=== PATIENT | male | born 1950 | race Caucasian/White ===

== ENCOUNTER 2017-11-29 08:55 | Day surgery (SDC) | payer MEDICARE, OTHER ==
[~2017-11-29 08:55] MED LIST: BUPIVACAINE 0.5% PF 30 ML VIAL ONE; LACTATED RINGERS 1,000 ML IV ONE; LIDOCAINE 1%-EPI 1:100000 30 ML MDV ONE; LIDOCAINE JELLY 2% 5 ML TUBE TOP ONE
[2017-11-29] MEDS ORDERED: PROPOFOL 1000 MG/100 ML IV ONE (13:00)
[2017-11-29] MEDS ORDERED: MIDAZOLAM 2 MG/2 ML VIAL IVP ONE (13:00)
[2017-11-29] MEDS ORDERED: BUPIVACAINE 0.5% PF 30 ML VIAL ONE (13:15)
[2017-11-29] MEDS ORDERED: LIDOCAINE 1%-EPI 1:100000 30 ML MDV ONE (13:15)
[2017-11-29] MEDS ORDERED: BUPIVACAINE 0.5% PF 30 ML VIAL SUBQ ONE (13:20)
[2017-11-29] MEDS ORDERED: LIDOCAINE 1%-EPI 1:100000 30 ML MDV SUBQ ONE (13:20)
--- NOTE | 2017-11-29 13:54 | OPERATIVE REPORT ---
Operative Report - General Procedure Date: 11/29/17 Planned Procedure: Incision and drainage perirectal abscess and removal of anal papula - Procedure Note Primary Surgeon: Tony - Other Other Information/Narrative: After obtaining informed consent the patient was brought into the operating room position on the operating table in the left lateral decubitus position. He was administered sedation. He was prepped and draped in the usual sterile fashion and a timeout taken according to protocol. Local anesthetic was infiltrated. The palpable abscess cavity was located in the 10 o'clock position. An elliptical incision was created over this area and deepened down to the subcutaneous tissue. This was excised with Bovie cautery. The surgeon' s finger was then inserted into the cavity and any loculations were broken up. There is no direct connection to the anal canal after extensively probing of the area. Anoscopy was performed and again no intra-anal opening was observed. A small anal papula located in the 9 o'clock position was removed with electrocautery and passed off as a specimen. The abscess cavity was then packed with quarter inch iodoform packing. Dressing was applied and the patient was taken to the recovery room in stable condition. Estimated blood loss: Minimal Specimens: Anal papula Complications: None
[2017-11-29 14:00] VITALS: BP 136/83
== END 2017-11-29 08:56 | disposition home or self-care (01) ==
LOC: SDS 08:55
PROVIDERS: ATTEND Surgery
PROC: 0D9P0ZZ Drainage of Rectum, Open Approach (ICD-10-PCS; principal; 2017-11-29 10:00)
DX: K61.1 Rectal abscess (principal); Z87.891 Personal history of nicotine dependence
CPT/HCPCS: 46040; J7120

== ENCOUNTER 2020-04-27 12:54 | Outpatient (CLI) | payer MEDICARE, OTHER ==
--- NOTE | 2020-04-27 13:35 | XRAY Report ---
PROCEDURE: Chest 2 View X-Ray INDICATIONS: HYPERTENSION TECHNIQUE: 2 view(s) of the chest. COMPARISON: None. FINDINGS: Surgical changes and devices: None. Lungs and pleura: No pleural effusions or pneumothorax. Lungs are clear. Mediastinum: Mediastinal contours are normal. Heart size is normal. Bones and chest wall: No suspicious bony abnormalities. Soft tissues appear unremarkable. IMPRESSION: No acute cardiopulmonary pathology. Reviewed by: Shai Hedrick MD on 04/27/2020 1:34 PM [facility] Approved by: Shai Hedrick MD on 04/27/2020 1:34 PM [facility] Station ID: [id number]
--- OUTSIDE RECORDS SUMMARY | 2020-05-04 01:49 | EXTERNAL MEDICAL SUMMARY RPT | Continuity of Care Document ---
:1950 Demographics Phone Unavailable Preferred Language Unknown Marital Status Unknown Baptism Affiliation Unknown Race Unknown Ethnic Group Unknown Author Organization [place] Address [address] [place] [address] Phone Care Team Providers Name Role Phone MD Unavailable Unavailable CHUCKA Unavailable Unavailable SONE Unavailable Unavailable Problems date description facility 2017-11-29 08:55 [facility] 2017-11-29 08:55 PERSONAL HISTORY OF NICOTINE [facility] DEPENDENCE 2020-04-27 00:00 [facility] 2020-04-27 00:00 ESSENTIAL (PRIMARY) [facility] HYPERTENSION 2020-04-27 00:00:00 TSH WITH REFLEX TO FT4 [facility] 2020-04-27 00:00:00 Unspecified essential [facility] hypertension 2020-04-27 00:00:00 CHEST 2 VIEW [facility] 2020-04-27 00:00:00 COMPREHENSIVE METABOLIC PANEL [facility] 2020-04-27 00:00:00 LIPIDS SCREEN [...] S urgical Care 2020-04-27 12:54 ESSENTIAL (PRIMARY) [facility] HYPERTENSION 2020-04-27 13:19 ESSENTIAL (PRIMARY) [facility] HYPERTENSION 2020-04-27 13:[address] [facility] Allergies date description facility TRIAMCINOLONE ACETONIDE [facility] HYDROMORPHONE [facility] NO ALLERGY INFORMATION AVAILABLE [facility] No Known Drug Allergies [facility] CODEINE [facility] METAXALONE [facility] AMIODARONE [facility] NITROGLYCERIN [facility] Medications date description facility 2020-04-27 00:00:[address] [facility] 2020-04-27 00:00:[address] [facility] 2020-04-27 00:00:00 [facility] 2020-04-27 00:00:00 [facility] 2020-04-28 00:00:[address] [facility] 2020-04-28 00:00:[address] [facility] 2020-04-28 00:00:[address] [facility] 2020-04-28 00:00:[address] [facility] Procedures date description facility 2020-04-27 00:00:00 TSH WITH REFLEX TO FT4 [facility] date description facility 2020-04-27 00:00:00 COMPREHENSIVE METABOLIC PANEL [facility] date description facility 2020-04-27 00:00:[address] [facility] date description facility 2020-04-27 00:00:[address] [facility] date description facility 2020-04-27 00:00:00 TROPONIN I HIGH SENSITIVITY [facility] date description facility 2020-04-27 00:00:00 CBC W/Diff/Plt [facility] date description facility 2020-04-27 00:00:00 [facility] date description facility 2020-04-27 [facility]:00[facility] Results Social History date description facility [phone]
== END 2020-04-27 23:59 | disposition home or self-care (01) ==
LOC: DI.N 12:54
PROVIDERS: ATTEND Family Medicine
DX: I10 Essential (primary) hypertension (principal); R07.89 Other chest pain
CPT/HCPCS: 36415; 80053; 80061; 82553; 83721; 84443; 84484; 85025; 85379

== ENCOUNTER 2020-04-27 13:19 | Outpatient (CLI) | payer MEDICARE, OTHER ==
[2020-04-27 18:55] LABS: CREATINE KINASE MB 1.9 ng/mL (0.6-6.3)
[2020-04-27 18:57] LABS: BASOPHILS # (AUTO) 0.1 10^3/uL (0.0-0.1); BASOPHILS % (AUTO) 0.9 %; EOSINOPHILS # (AUTO) 0.3 10^3/uL (0.0-0.7); EOSINOPHILS % (AUTO) 4.5 %; LYMPHOCYTES # (AUTO) 1.2 10^3/uL (1.5-3.5); MEAN CORPUSCULAR HEMOGLOBIN 31.3 pg (27.0-31.0); MEAN CORPUSCULAR HGB CONC 32.3 g/dL (32.0-36.0); MEAN CORPUSCULAR VOLUME 96.7 fL (80.0-94.0); MEAN PLATELET VOLUME 10.2 fL (7.4-11.4); MONOCYTES # (AUTO) 0.6 10^3/uL (0.0-1.0); MONOCYTES % (AUTO) 11.4 %; NEUTROPHILS # (AUTO) 3.4 10^3/uL (1.5-6.6); NEUTROPHILS % (AUTO) 61.7 %; PLT - PLATELET COUNT 263 10^3/uL (130-450); RED BLOOD COUNT 5.12 10^6/uL (4.70-6.10); RED CELL DISTRIBUTION WIDTH 13.8 % (12.0-15.0); WHITE BLOOD COUNT 5.5 x10^3/uL (4.8-10.8)
[2020-04-27 19:03] LABS: ALBUMIN 4.3 g/dL (3.2-5.5); ALBUMIN/GLOBULIN RATIO 1.3 (1.0-2.2); ALKALINE PHOSPHATASE 51 IU/L (42-121); ALT ALANINE AMINOTRANSFERASE 29 IU/L (10-60); AST ASPARTATE AMINOTRANSFERASE 25 IU/L (10-42); BILIRUBIN,TOTAL 0.7 mg/dL (0.2-1.0); BUN - BLOOD UREA NITROGEN 11 mg/dL (6-20); CALCIUM 9.5 mg/dL (8.5-10.3); CARBON DIOXIDE - CO2 28 mmol/L (21-32); CHLORIDE 108 mmol/L (101-111); CHOL/HDL RATIO 3.8 (<5.0); CHOLESTEROL 214 mg/dL; CREATININE 0.9 mg/dL (0.6-1.2); GLUCOSE 103 mg/dL (70-100); HDL CHOLESTEROL 56 mg/dL; LDL CHOLESTEROL,CALCULATED 124 mg/dL; LDL/HDL RATIO 2.2 (<3.6); SODIUM 142 mmol/L (135-145); TOTAL PROTEIN 7.7 g/dL (6.7-8.2); VLDL CHOLESTEROL 34 mg/dL
--- OUTSIDE RECORDS SUMMARY | 2020-05-04 01:48 | EXTERNAL MEDICAL SUMMARY RPT | Continuity of Care Document ---
:1950 Demographics Phone Unavailable Preferred Language Unknown Marital Status Unknown Yazdanism Affiliation Unknown Race Unknown Ethnic Group Unknown Author Organization [place] Address [address] [place] [address] Phone Care Team Providers Name Role Phone MD Unavailable Unavailable SONE Unavailable Unavailable CHUCKA Unavailable Unavailable Problems date description facility 2017-11-29 08:55 [facility] 2017-11-29 08:55 PERSONAL HISTORY OF NICOTINE [facility] DEPENDENCE 2020-04-27 00:00 [facility] 2020-04-27 00:00 [facility]SSENTIAL (PRIMARY) [facility] HYPERTENSION 2020-04-27 00:00:00 TSH WITH REFLEX TO FT4 [facility] 2020-04-27 00:00:00 Unspecified essential [facility] hypertension 2020-04-27 00:00:00 CHEST 2 VIEW [facility] 2020-04-27 00:00:00 COMPREHENSIVE METABOLIC PANEL [facility] 2020-04-27 00:00:00 LIPIDS SCREEN [facility] 2020-04-27 00:00:00 CKMB [facility] 2020-04-27 00:00:00 TROPONIN I H[facility]ENSITIVITY [facility] 2020-04-27 00:00:00 CBC W/Diff/Plt [facility] 2020-04-27 00:00:00 D-DIMER [facility] 2020-04-27 00:00:00 Essential (primary) [facility] hypertension 2020-04-27 00:00:00 Other chest pain [facility] 2020-04-27 00:00:00 Chest discomfort [facility] 2020-04-27 00:00:00 Hypertensive disorder [facility] 2020-04-27 12:54 ESSENTIAL (PRIMARY) [facility] HYPERTENSION 2020-04-27 13:19 ESSENTIAL (PRIMARY) [facility] HYPERTENSION 2020-04-27 13:19 OTHER CHEST PAIN [facility] Allergies date description facility TRIAMCINOLONE ACETONIDE [facility] HYDROMORPHONE [facility] NO ALLERGY INFORMATION AVAILABLE [facility] No Known Drug Allergies [facility] CODEINE [facility] METAXALONE [facility] AMIODARONE [facility] NITROGLYCERIN [facility] Medications date description facility 2020-04-27 00:00:00 null [facility] 2020-04-27 00:00:00 null [facility] 2020-04-27 00:00:[facility] 2020-[facility] 2020-04-28 00:00:00 null [facility] 2020-04-28 00:00:00 null [facility] 2020-04-28 00:00:00 HYDROCHLOROTHIAZIDE [facility] 2020-04-28 00:00:00 HYDROCHLOROTHIAZIDE [facility] Procedures date description facility 2020-04-27 00:00:00 TSH WITH REFLEX TO FT4 [facility] date description facility 2020-04-27 00:00:00 COMPREHENSIVE METABOLIC PANEL [facility] date description facility 2020-04-27 00:00:00 LIPIDS SCREEN [facility] date description facility 2020-04-27 00:00:00 CKMB [facility] date description facility 2020-04-27 00:00:00 [address] HIGH SENS[address] [facility] date description facility 2020-04-27 00:00:00 CBC W/Diff/Plt [facility] date description facility 2020-04-27 00:00:00 D-DIMER [facility] date description facility 2020-04-27 [facility] Results Social History date description facility [id number]
== END 2020-04-27 23:59 | disposition home or self-care (01) ==
LOC: LAB.N 13:19
PROVIDERS: ATTEND Family Medicine
DX: I10 Essential (primary) hypertension (principal); R07.89 Other chest pain
CPT/HCPCS: 36415; 80053; 80061; 82553; 83721; 84443; 84484; 85025; 85379

== ENCOUNTER 2023-01-30 10:24 | Outpatient (CLI) | payer MEDICARE, OTHER ==
[2023-01-30 10:48] LABS: ALBUMIN 4.3 g/dL (3.2-5.5); ALBUMIN/GLOBULIN RATIO 1.5 (1.0-2.2); ALKALINE PHOSPHATASE 50 IU/L (42-121); ALT ALANINE AMINOTRANSFERASE 23 IU/L (10-60); AST ASPARTATE AMINOTRANSFERASE 20 IU/L (10-42); BILIRUBIN,TOTAL 0.8 mg/dL (0.2-1.0); BUN - BLOOD UREA NITROGEN 15 mg/dL (6-20); CALCIUM 9.4 mg/dL (8.5-10.3); CARBON DIOXIDE - CO2 32 mmol/L (21-32); CHLORIDE 103 mmol/L (101-111); CHOLESTEROL 162 mg/dL; GFR - MDRD 74 (>89); GLUCOSE 116 mg/dL (74-104); POTASSIUM 3.7 mmol/L (3.5-4.5); SODIUM 140 mmol/L (135-145); TOTAL PROTEIN 7.1 g/dL (6.4-8.9); TRIGLYCERIDES 118 mg/dL (48-352); VLDL CHOLESTEROL 24 mg/dL
[2023-01-30 11:41] LABS: ESTIMATED AVERAGE GLUCOSE 117 mg/dL (70-100); HEMOGLOBIN A1c% 5.7 % (4.27-6.07)
[2023-01-31 00:01] LABS: CHOL/HDL RATIO 2.9 (<5.0); HDL CHOLESTEROL 55 mg/dL; LDL CHOLESTEROL,CALCULATED 83 mg/dL; LDL/HDL RATIO 1.5 (<3.6)
== END 2023-01-30 10:25 | disposition home or self-care (01) ==
LOC: LAB 10:24
PROVIDERS: ATTEND Family Medicine
DX: R73.9 Hyperglycemia, unspecified (principal); E78.5 Hyperlipidemia, unspecified; Z85.46 Personal history of malignant neoplasm of prostate; I10 Essential (primary) hypertension
CPT/HCPCS: 36415; 80053; 80061; 83036; 83721; 84153